=== PATIENT | female | born 1965 | race Caucasian/White ===

== ENCOUNTER 2016-04-12 13:10 | Emergency (ER) | payer OTHER ==
[~2016-04-12] VITALS: Ht 172.7 cm; Wt 75.7 kg
[2016-04-12 13:57] LABS: EOSINOPHIL (%) 1.4 % (0-5); EOSINOPHIL COUNT 0.1 K/uL (0-0.3); LYMPHOCYTE COUNT 0.7 K/uL (1.0-2.8); MCH 25.1 PG (29.0-34.0); MCHC 30.6 G/DL (30.0-36.0); MCV 82.1 FL (83-99); MEAN PLAT.VOLUME 9.8 uM^3 (9.5-12.4); MONOCYTE (%) 11.3 % (3-12); MONOCYTE COUNT 0.6 K/uL (0-0.8); NEUTROPHIL (%) 73.6 % (45-76); NEUTROPHIL COUNT 3.7 K/uL (1.8-6.4); PLATELET COUNT 279 K/uL (156-360); RBC DIS.WIDTH-CV 15.4 % (11.8-14.6); RBC DIS.WIDTH-SD 45.4 % (39-53); RED BLOOD COUNT 4.02 M/uL (3.80-5.20); WHITE BLOOD COUNT 5.1 K/uL (4.1-10.2)
[2016-04-12 14:10] LABS: CHLORIDE 106 mEq/L (99-109); POTASSIUM 3.2 mEq/L (3.7-5.4); SODIUM 138 mEq/L (136-147)
[2016-04-12 14:13] LABS: GLUCOSE 116 mg/dL (70-99)
[2016-04-12 14:14] LABS: ANION GAP 10 MEQ/L (2-14)
[2016-04-12 14:15] LABS: TOTAL BILIRUBIN 0.3 mg/dL (0.0-1.0)
[2016-04-12 14:16] LABS: ALKALINE PHOSPHATASE 68 IU/L (3-129); GFR ESTIMATE (CALCULATED) > 59 mL/min/
[2016-04-12 14:17] LABS: UREA NITROGEN (BUN) 9 mg/dL (9-23)
[2016-04-12 14:18] LABS: TROP-I INTERPRETATION NEGATIVE; TROPONIN-I < 0.01 ng/mL (0.0-0.30)
[2016-04-12 14:39] LABS: QUANTITATIVE HCG < 4.0 MIU/ML
[2016-04-12] MEDS ORDERED: ANTIVERT25 MG PO (15:29)
[2016-04-12] MEDS ORDERED: PROMETHAZINE HC25 M1 PO (15:29)
[2016-04-12] MEDS ORDERED: BUPROPION XL300 MG PO (15:40)
[2016-04-12] MEDS ORDERED: CLONIDINE1 EACH TD (15:40)
[2016-04-12] MEDS ORDERED: FLUOXETINE HCL40 MG PO (15:41)
[2016-04-12] MEDS ORDERED: VENLAFAXINE HCL75 M3 PO (15:41)
[2016-04-12] MEDS ORDERED: HYDROCHLOROTHIA50 MG PO (15:41)
[2016-04-12 15:47] VITALS: BP 94/55
== END 2016-04-12 16:05 | disposition home or self-care (01) ==
LOC: EME 13:10
PROVIDERS: Emergency Medicine
DX: H81.10 Benign paroxysmal vertigo, unspecified ear (principal); R11.2 Nausea with vomiting, unspecified; R20.0 Anesthesia of skin; F17.200 Nicotine dependence, unspecified, uncomplicated; Z71.6 Tobacco abuse counseling
CPT/HCPCS: 70450; 80053; 84484; 84702; 85025; 93005; 99281; 99284; J0780; J2405; J3360; J7030

== ENCOUNTER 2016-08-22 00:08 | Emergency (ER) | payer OTHER ==
[~2016-08-22] VITALS: Ht 172.7 cm; Wt 70.4 kg
[~2016-08-22 00:08] MED LIST: ANTIVERT25 MG PO; BUPROPION XL300 MG PO; CLONIDINE1 EACH TD; FLUOXETINE HCL40 MG PO; HYDROCHLOROTHIA50 MG PO; PROMETHAZINE HC25 M1 PO; VENLAFAXINE HCL75 M3 PO
[2016-08-22 03:58] VITALS: BP 98/65
== END 2016-08-22 04:34 | disposition home or self-care (01) ==
LOC: EME 00:08
DX: T78.3XXA Angioneurotic edema, initial encounter (principal); Z91.013 Allergy to seafood; Z87.891 Personal history of nicotine dependence
CPT/HCPCS: 99281; 99284; J1200; J2405; J2930; J7030; Q0177; S0028